=== PATIENT | female | born 1950 | race African-American/Black ===

== ENCOUNTER 2017-03-17 10:01 | Emergency (ER) | payer OTHER ==
[~2017-03-17] VITALS: Ht 165.1 cm; Wt 86.2 kg
[~2017-03-17 10:01] MED LIST: ASPIRIN325 PO; BACTRIM DS TAB1 EACH PO; CIPROFLOXACIN500 M1 PO; COLLAGEN PO; COZAAR 25 MG TA25 M1 PO; FLONASE 0.05%50 MCG NASAL; GYNE-LOTRIMIN21 GM VG; HUMALOG100 UNIT/2 SQ; IBUPROFEN 400400 M2 PO; JANUVIA50 MG; LANTUS100 UNIT/M SQ; LOSARTAN-HCTZ1 EAC3 PO; MACROBID 100 M100 M1 PO; NORCO 5-325 TA1 EACH PO; NOVOLOG100 UNIT/1 SQ; OMEPRAZOLE20 MG PO; PRINIVIL20 M1; PYRIDIUM100 M1 PO; SIMVASTATIN40 MG PO; ULTRAM 50MG TAB50 MG PO
[2017-03-17] MEDS ORDERED: VITAMIN D1000 UNI1 PO (10:20)
[2017-03-17 10:56] LABS: URINE BILIRUBIN NEGATIVE (Negative); URINE BLOOD 1+ (Negative); URINE COLOR YELLOW; URINE GLUCOSE-RANDOM* NEGATIVE (Negative); URINE KETONES NEGATIVE (Negative); URINE LEUKOCYTES-REFLEX 3+ (Negative); URINE PROTEIN (DIPSTICK) NEGATIVE (Negative); URINE SPECIFIC GRAVITY 1.015 (1.003-1.035); URINE UROBILINOGEN 0.2 E.U./dl (0.2-1.0)
[2017-03-17 11:05] LABS: CASTS None Seen /LPF (None Seen); CRYSTALS None Seen /LPF (None Seen); SQUAMOUS 0-3 Few /LPF (0-3); URINE RBC 0-2 Rare /HPF (0-2); URINE WBC-REFLEX >25 Many /HPF (0-5)
[2017-03-17] MEDS ORDERED: MACROBID 100 M100 M1 PO (11:07)
[2017-03-17] MEDS ORDERED: PHENAZOPYRIDIN200 M2 PO (11:07)
== END 2017-03-17 11:18 | disposition home or self-care (01) ==
LOC: ER 10:01
PROVIDERS: Physician Assistant
DX: N39.0 Urinary tract infection, site not specified (principal); I10 Essential (primary) hypertension; K21.9 Gastro-esophageal reflux disease without esophagitis; E11.9 Type 2 diabetes mellitus without complications; Z79.4 Long term (current) use of insulin; E78.5 Hyperlipidemia, unspecified; I25.2 Old myocardial infarction; F10.99 Alcohol use, unspecified with unspecified alcohol-induced disorder

== ENCOUNTER → 2017-03-26 | Outpatient (CLI) | payer OTHER ==
[~2017-03-26] MED LIST changes: +PHENAZOPYRIDIN200 M2 PO; +VITAMIN D1000 UNI1 PO
== END ==
LOC: RAD 08:45
DX: Z12.31 Encounter for screening mammogram for malignant neoplasm of breast (principal)

== ENCOUNTER 2017-05-07 17:46 | Emergency (ER) | payer OTHER ==
[~2017-05-07] VITALS: Ht 165.1 cm; Wt 86.2 kg
[2017-05-07 21:04] LABS: URINE BILIRUBIN NEGATIVE (Negative); URINE BLOOD 1+ (Negative); URINE COLOR YELLOW; URINE GLUCOSE-RANDOM* NEGATIVE (Negative); URINE KETONES NEGATIVE (Negative); URINE LEUKOCYTES-REFLEX 3+ (Negative); URINE PROTEIN (DIPSTICK) NEGATIVE (Negative); URINE UROBILINOGEN 0.2 E.U./dl (0.2-1.0)
[2017-05-07] MEDS ORDERED: KEFLEX500 MG PO (21:06)
[2017-05-07 21:08] LABS: SQUAMOUS 0-3 Few /LPF (0-3); URINE RBC 3-10 Few /HPF (0-2); URINE WBC-REFLEX >25 Many /HPF (0-5)
[2017-05-07 21:09] LABS: CASTS None Seen /LPF (None Seen); CRYSTALS None Seen /LPF (None Seen)
[2017-05-07] MEDS ORDERED: MACROBID 100 M100 M1 PO (21:10)
== END 2017-05-07 21:14 | disposition home or self-care (01) ==
LOC: ER 17:46
PROVIDERS: Emergency Medicine
DX: N39.0 Urinary tract infection, site not specified (principal); I10 Essential (primary) hypertension; E11.9 Type 2 diabetes mellitus without complications; K21.9 Gastro-esophageal reflux disease without esophagitis; E78.00 Pure hypercholesterolemia, unspecified; I25.2 Old myocardial infarction; F10.99 Alcohol use, unspecified with unspecified alcohol-induced disorder; Z79.4 Long term (current) use of insulin

== ENCOUNTER 2018-01-04 14:52 | Emergency (ER) | payer OTHER ==
[~2018-01-04] VITALS: Ht 165.1 cm; Wt 81.7 kg
[~2018-01-04 14:52] MED LIST changes: +HYDROCODONE-AP1 EAC6 PO; +IBUPROFEN 600600 M1 PO; +KEFLEX500 MG PO; +VICTOZA0.6 MG/0.1 SUBQ
[2018-01-04 16:47] LABS: URINE BILIRUBIN NEGATIVE (Negative); URINE BLOOD 1+ (Negative); URINE CLARITY CLEAR; URINE COLOR YELLOW; URINE GLUCOSE-RANDOM* NEGATIVE (Negative); URINE KETONES NEGATIVE (Negative); URINE LEUKOCYTES 2+ (Negative); URINE NITRITE NEGATIVE (Negative); URINE PROTEIN (DIPSTICK) 1+ (Negative); URINE UROBILINOGEN 0.2 E.U./dl (0.2-1.0)
[2018-01-04 16:49] LABS: BACTERIA >30 Many /HPF (None Seen); SQUAMOUS >10 Many /LPF (0-3); URINE RBC 0-2 Rare /HPF (0-2); URINE WBC >25 Many /HPF (0-5)
[2018-01-04 16:49] LABS: HEMATOCRIT 35.7 % (37.0-47.0); MCH 27.2 pg (26.0-34.0); MCHC 33.6 g/dL (28.0-37.0); MCV 80.9 fL (80.0-100.0); PLATELET COUNT 260 thou/uL (150-400); RBC 4.41 mil/uL (4.20-5.00); RDW 14.7 % (10.5-14.5); WBC 7.5 thou/uL (4.0-11.0)
[2018-01-04 16:50] LABS: CRYSTALS None Seen /LPF (None Seen)
[2018-01-04] MEDS ORDERED: KEFLEX500 M1 PO (16:52)
[2018-01-04] MEDS ORDERED: NAPROSYN500 MG PO (16:52)
[2018-01-04 16:56] LABS: CALCIUM 9.3 mg/dL (8.5-10.1); CREATININE 1.8 mg/dL (0.6-1.0); POTASSIUM 3.7 mmol/L (3.5-5.1)
[2018-01-04 17:10] VITALS: BP 141/78
[2018-01-04 17:13] LABS: ABSOLUTE NEUTROPHILS 4.8 thou/uL (1.4-8.2); PLATELET ESTIMATE NORMAL
[2018-03-17] MEDS ORDERED: ASPIRIN325 PO (08:38)
[2018-03-17] MEDS ORDERED: NORCO 5-325 TA1 EACH PO (10:09)
[2018-03-17] MEDS ORDERED: SENNA-DOCUSATE1 EACH PO (10:09)
[2018-03-17] MEDS ORDERED: INDOMETHACIN 2525 MG PO (10:09)
== END 2018-01-04 17:16 | disposition home or self-care (01) ==
LOC: ER 14:52
PROVIDERS: Nurse Practitioner Family
DX: J09.X2 Influenza due to identified novel influenza A virus with other respiratory manifestations (principal); E86.0 Dehydration; N39.0 Urinary tract infection, site not specified; N17.9 Acute kidney failure, unspecified; I10 Essential (primary) hypertension; E11.9 Type 2 diabetes mellitus without complications; K21.9 Gastro-esophageal reflux disease without esophagitis; E78.00 Pure hypercholesterolemia, unspecified; Z87.891 Personal history of nicotine dependence; Z79.4 Long term (current) use of insulin

== ENCOUNTER 2018-06-29 09:20 | Emergency (ER) | payer OTHER ==
[~2018-06-29] VITALS: Ht 165.1 cm; Wt 86.2 kg
[~2018-06-29 09:20] MED LIST changes: +INDOMETHACIN 2525 MG PO; +KEFLEX500 M1 PO; +NAPROSYN500 MG PO; +SENNA-DOCUSATE1 EACH PO
[2018-06-29 10:07] LABS: HEMATOCRIT 31.5 % (37.0-47.0); HEMOGLOBIN 10.7 gm/dL (12.0-15.0); MCHC 33.9 g/dL (28.0-37.0); MCV 79.5 fL (80.0-100.0); PLATELET COUNT 228 thou/uL (150-400); RBC 3.97 mil/uL (4.20-5.00); RDW 14.9 % (10.5-14.5); WBC 7.7 thou/uL (4.0-11.0)
[2018-06-29 10:13] LABS: CALCIUM 9.1 mg/dL (8.5-10.1); CREATININE 2.6 mg/dL (0.6-1.0)
[2018-06-29 10:29] LABS: URINE BILIRUBIN NEGATIVE (Negative); URINE BLOOD 2+ (Negative); URINE CLARITY CLOUDY; URINE COLOR YELLOW; URINE GLUCOSE-RANDOM* NEGATIVE (Negative); URINE KETONES NEGATIVE (Negative); URINE NITRITE-REFLEX NEGATIVE (Negative); URINE PROTEIN (DIPSTICK) 1+ (Negative); URINE SPECIFIC GRAVITY 1.015 (1.005-1.035); URINE UROBILINOGEN 0.2 E.U./dl (0.2-1.0)
[2018-06-29 10:30] LABS: URINE LEUKOCYTES-REFLEX 3+ (Negative)
[2018-06-29 10:50] LABS: SQUAMOUS 0-3 Few /LPF (0-3)
[2018-06-29 10:51] LABS: BACTERIA-REFLEX >30 Many /HPF (None Seen); CASTS None Seen /LPF (None Seen); CRYSTALS None Seen /LPF (None Seen); URINE RBC 0-2 Rare /HPF (0-2); URINE WBC-REFLEX >25 Many /HPF (0-5)
[2018-06-29 11:26] LABS: ABSOLUTE NEUTROPHILS 5.2 thou/uL (1.4-8.2); ANISOCYTOSIS 1+
[2018-06-29 12:23] LABS: CALCIUM 8.7 mg/dL (8.5-10.1); CREATININE 2.5 mg/dL (0.6-1.0); POTASSIUM 4.1 mmol/L (3.5-5.1)
[2018-06-29] MEDS ORDERED: KEFLEX500 M1 PO (12:41)
== END 2018-06-29 13:21 | disposition home or self-care (01) ==
LOC: ER 09:20
PROVIDERS: Student in an Organized Health Care Education/Training Program
DX: N39.0 Urinary tract infection, site not specified (principal); Z87.891 Personal history of nicotine dependence; I10 Essential (primary) hypertension; E11.9 Type 2 diabetes mellitus without complications; K21.9 Gastro-esophageal reflux disease without esophagitis; E78.00 Pure hypercholesterolemia, unspecified; E78.5 Hyperlipidemia, unspecified; Z79.4 Long term (current) use of insulin

== ENCOUNTER 2018-08-10 11:39 | Emergency (ER) | payer OTHER ==
[~2018-08-10] VITALS: Ht 165.1 cm; Wt 86.2 kg
[2018-08-10] MEDS ORDERED: PATANOL5 ML OPHTHALMIC (12:21)
[2018-08-10] MEDS ORDERED: XALATAN2.5 ML OPHTHALMIC (12:28)
[2018-08-10] MEDS ORDERED: SIMBRINZA 1%-0.28 ML OPHTHALMIC (12:29)
== END 2018-08-10 13:05 | disposition home or self-care (01) ==
LOC: ER 11:39
DX: H10.13 Acute atopic conjunctivitis, bilateral (principal); I10 Essential (primary) hypertension; E11.9 Type 2 diabetes mellitus without complications; K21.9 Gastro-esophageal reflux disease without esophagitis; E78.00 Pure hypercholesterolemia, unspecified; Z79.4 Long term (current) use of insulin

== ENCOUNTER 2018-08-25 08:51 | Emergency (ER) | payer OTHER ==
[~2018-08-25] VITALS: Ht 165.1 cm; Wt 81.7 kg
[~2018-08-25 08:51] MED LIST changes: +PATANOL5 ML OPHTHALMIC; +SIMBRINZA 1%-0.28 ML OPHTHALMIC; +XALATAN2.5 ML OPHTHALMIC
[2018-08-25] MEDS ORDERED: VITAMIN C500 MG PO (09:10)
[2018-08-25 09:11] LABS: URINE BILIRUBIN NEGATIVE (Negative); URINE BLOOD 1+ (Negative); URINE CLARITY SL CLOUDY; URINE COLOR YELLOW; URINE GLUCOSE-RANDOM* 2+ (Negative); URINE KETONES NEGATIVE (Negative); URINE LEUKOCYTES-REFLEX 2+ (Negative); URINE NITRITE-REFLEX POSITIVE (Negative); URINE PROTEIN (DIPSTICK) TRACE (Negative); URINE SPECIFIC GRAVITY 1.015 (1.005-1.035); URINE UROBILINOGEN 0.2 E.U./dl (0.2-1.0)
[2018-08-25 09:21] LABS: BACTERIA-REFLEX >30 Many /HPF (None Seen); CASTS None Seen /LPF (None Seen); CRYSTALS None Seen /LPF (None Seen); SQUAMOUS 0-3 Few /LPF (0-3); URINE RBC 0-2 Rare /HPF (0-2); URINE WBC-REFLEX >25 Many /HPF (0-5)
[2018-08-25] MEDS ORDERED: MOBIC15 MG PO (09:37)
[2018-08-25] MEDS ORDERED: HUMALOG100 UNIT/2 SQ (09:37)
[2018-08-25] MEDS ORDERED: KEFLEX500 M1 PO (09:37)
== END 2018-08-25 10:01 | disposition home or self-care (01) ==
LOC: ER 08:51
PROVIDERS: Emergency Medicine
DX: N39.0 Urinary tract infection, site not specified (principal); I10 Essential (primary) hypertension; K21.9 Gastro-esophageal reflux disease without esophagitis; I25.2 Old myocardial infarction; E78.00 Pure hypercholesterolemia, unspecified; E11.9 Type 2 diabetes mellitus without complications; Z79.4 Long term (current) use of insulin; Z86.73 Personal history of transient ischemic attack (TIA), and cerebral infarction without residual deficits; Z87.891 Personal history of nicotine dependence

== ENCOUNTER 2018-12-17 15:25 | Emergency (ER) | payer OTHER ==
[~2018-12-17] VITALS: Ht 165.1 cm; Wt 90.7 kg
[~2018-12-17 15:25] MED LIST changes: +MOBIC15 MG PO; +VITAMIN C500 MG PO
[2018-12-17 16:24] LABS: ABSOLUTE NEUTROPHILS 7.5 thou/uL (1.4-8.2); BASOPHILS 1.4 % (0.0-2.0); EOSINOPHILS 3.1 % (0.0-3.0); HEMATOCRIT 32.3 % (37.0-47.0); HEMOGLOBIN 11.1 gm/dL (12.0-15.0); LYMPHOCYTES 20.3 % (24.0-44.0); MCH 27.4 pg (26.0-34.0); MCHC 34.4 g/dL (28.0-37.0); MCV 79.5 fL (80.0-100.0); MONOCYTES 5.7 % (1.0-8.0); PLATELET COUNT 259 thou/uL (150-400); POLYS 69.5 % (36.0-66.0); RBC 4.06 mil/uL (4.20-5.00); RDW 14.8 % (10.5-14.5); WBC 10.8 thou/uL (4.0-11.0)
[2018-12-17 16:31] LABS: CALCIUM 8.9 mg/dL (8.5-10.1); CREATININE 1.9 mg/dL (0.6-1.0); POTASSIUM 3.6 mmol/L (3.5-5.1)
[2018-12-17 16:37] LABS: ALBUMIN 3.3 g/dL (3.4-5.0); TOTAL BILIRUBIN 0.4 mg/dL (<0.1-1.0); TOTAL PROTEIN 7.8 g/dL (6.4-8.2)
[2018-12-17] MEDS ORDERED: NORFLEX100 MG PO (17:19)
[2018-12-17] MEDS ORDERED: ULTRAM 50MG TAB50 MG PO (17:19)
[2018-12-17 17:38] VITALS: BP 130/64
[2018-12-17] MEDS ORDERED: PATANOL5 ML OPHTHALMIC (17:43)
== END 2018-12-17 17:38 | disposition home or self-care (01) ==
LOC: ER 15:25
PROVIDERS: Physician Assistant
DX: S39.012A Strain of muscle, fascia and tendon of lower back, initial encounter (principal); M54.2 Cervicalgia; G89.29 Other chronic pain; M79.662 Pain in left lower leg; I10 Essential (primary) hypertension; E11.9 Type 2 diabetes mellitus without complications; K21.9 Gastro-esophageal reflux disease without esophagitis; E78.00 Pure hypercholesterolemia, unspecified; I25.2 Old myocardial infarction; Z87.891 Personal history of nicotine dependence; X58.XXXA Exposure to other specified factors, initial encounter; Y93.89 Activity, other specified; Y92.89 Other specified places as the place of occurrence of the external cause; Y99.8 Other external cause status

== ENCOUNTER 2018-12-23 06:16 | Emergency (ER) | payer OTHER ==
[~2018-12-23] VITALS: Ht 165.1 cm; Wt 81.7 kg
[~2018-12-23 06:16] MED LIST changes: +NORFLEX100 MG PO
[2018-12-23 07:01] LABS: BASOPHILS 1.3 % (0.0-2.0); EOSINOPHILS 3.2 % (0.0-3.0); HEMATOCRIT 33.2 % (37.0-47.0); HEMOGLOBIN 11.2 gm/dL (12.0-15.0); LYMPHOCYTES 24.9 % (24.0-44.0); MCH 26.7 pg (26.0-34.0); MCHC 33.7 g/dL (28.0-37.0); MCV 79.2 fL (80.0-100.0); MONOCYTES 7.4 % (1.0-8.0); PLATELET COUNT 300 thou/uL (150-400); POLYS 63.2 % (36.0-66.0); RDW 14.2 % (10.5-14.5); WBC 9.6 thou/uL (4.0-11.0)
[2018-12-23 07:08] LABS: CALCIUM 9.8 mg/dL (8.5-10.1); CREATININE 2.1 mg/dL (0.6-1.0); POTASSIUM 4.4 mmol/L (3.5-5.1)
[2018-12-23] MEDS ORDERED: NORCO 5-325 TA1 EACH PO (08:16)
[2018-12-23] MEDS ORDERED: SENNA-DOCUSATE1 EAC1 PO (08:16)
[2018-12-23 08:48] VITALS: BP 147/68
== END 2018-12-23 09:06 | disposition home or self-care (01) ==
LOC: ER 06:16
PROVIDERS: Emergency Medicine
DX: M10.071 Idiopathic gout, right ankle and foot (principal); I10 Essential (primary) hypertension; E11.9 Type 2 diabetes mellitus without complications; K21.9 Gastro-esophageal reflux disease without esophagitis; E78.00 Pure hypercholesterolemia, unspecified; I25.2 Old myocardial infarction; Z87.891 Personal history of nicotine dependence

== ENCOUNTER 2019-02-14 15:19 | Emergency (ER) | payer OTHER ==
[~2019-02-14] VITALS: Ht 165.1 cm; Wt 88.5 kg
[~2019-02-14 15:19] MED LIST changes: +SENNA-DOCUSATE1 EAC1 PO
[2019-02-14 16:38] LABS: URINE BILIRUBIN NEGATIVE (Negative); URINE BLOOD 1+ (Negative); URINE CLARITY SL CLOUDY; URINE COLOR YELLOW; URINE GLUCOSE-RANDOM* 1+ (Negative); URINE KETONES NEGATIVE (Negative); URINE PROTEIN (DIPSTICK) 1+ (Negative); URINE SPECIFIC GRAVITY 1.015 (1.005-1.035); URINE UROBILINOGEN 0.2 E.U./dl (0.2-1.0)
[2019-02-14 16:39] LABS: URINE LEUKOCYTES-REFLEX 3+ (Negative); URINE NITRITE-REFLEX POSITIVE (Negative)
[2019-02-14 16:49] LABS: HEMATOCRIT 34.4 % (37.0-47.0); HEMOGLOBIN 11.4 gm/dL (12.0-15.0); MCH 27.2 pg (26.0-34.0); MCHC 33.2 g/dL (28.0-37.0); RBC 4.19 mil/uL (4.20-5.00); RDW 14.9 % (10.5-14.5); WBC 9.6 thou/uL (4.0-11.0)
[2019-02-14 16:50] LABS: CASTS None Seen /LPF (None Seen); CRYSTALS None Seen /LPF (None Seen); SQUAMOUS 4-10 Moderate /LPF (0-3); URINE WBC-REFLEX >25 Many /HPF (0-5)
[2019-02-14 16:51] LABS: BACTERIA-REFLEX >30 Many /HPF (None Seen); URINE RBC 0-2 Rare /HPF (0-2)
[2019-02-14 16:56] LABS: CALCIUM 9.2 mg/dL (8.5-10.1); CREATININE 2.1 mg/dL (0.6-1.0); POTASSIUM 4.1 mmol/L (3.5-5.1)
[2019-02-14 17:02] LABS: ALBUMIN 3.4 g/dL (3.4-5.0); TOTAL BILIRUBIN 0.3 mg/dL (<0.1-1.0); TOTAL PROTEIN 7.6 g/dL (6.4-8.2)
[2019-02-14] MEDS ORDERED: COZAAR 25 MG TA25 M2 PO (17:40)
[2019-02-14] MEDS ORDERED: OLOPATADINE HCL5 ML OPHTHALMIC (17:40)
[2019-02-14] MEDS ORDERED: KEFLEX500 M1 PO (17:40)
[2019-02-14] MEDS ORDERED: NORCO 10-325 T1 EACH PO (17:40)
[2019-02-14 17:54] VITALS: BP 147/81
== END 2019-02-14 17:55 | disposition home or self-care (01) ==
LOC: ER 15:19
PROVIDERS: Physician Assistant
DX: M10.071 Idiopathic gout, right ankle and foot (principal); N39.0 Urinary tract infection, site not specified; Z76.0 Encounter for issue of repeat prescription; L53.9 Erythematous condition, unspecified; I10 Essential (primary) hypertension; E11.9 Type 2 diabetes mellitus without complications; K21.9 Gastro-esophageal reflux disease without esophagitis; E78.00 Pure hypercholesterolemia, unspecified; Z87.891 Personal history of nicotine dependence; Z79.4 Long term (current) use of insulin

== ENCOUNTER 2019-06-21 13:52 | Emergency (ER) | payer OTHER ==
[~2019-06-21] VITALS: Ht 165.1 cm; Wt 63.5 kg
[~2019-06-21 13:52] MED LIST changes: +COZAAR 25 MG TA25 M2 PO; +NORCO 10-325 T1 EACH PO; +OLOPATADINE HCL5 ML OPHTHALMIC
[2019-06-21] MEDS ORDERED: COLCHICINE0.6 MG PO (16:01)
[2019-06-21] MEDS ORDERED: NORCO 5-325 TA1 EAC1 PO (16:05)
[2019-06-21 16:27] VITALS: BP 118/64
== END 2019-06-21 16:28 | disposition home or self-care (01) ==
LOC: ER 13:52
DX: M19.041 Primary osteoarthritis, right hand (principal); I10 Essential (primary) hypertension; E11.9 Type 2 diabetes mellitus without complications; K21.9 Gastro-esophageal reflux disease without esophagitis; E78.00 Pure hypercholesterolemia, unspecified; M10.9 Gout, unspecified; Z79.4 Long term (current) use of insulin; Z86.73 Personal history of transient ischemic attack (TIA), and cerebral infarction without residual deficits; Z87.891 Personal history of nicotine dependence

== ENCOUNTER 2019-08-31 07:15 | Emergency (ER) | payer OTHER ==
[~2019-08-31] VITALS: Ht 167.6 cm; Wt 88.5 kg
[~2019-08-31 07:15] MED LIST changes: +COLCHICINE0.6 MG PO; +NORCO 5-325 TA1 EAC1 PO
[2019-08-31 07:17] VITALS: BP 150/62
[2019-08-31] MEDS ORDERED: HUMALOG100 UNIT/1 SUBQ (07:26)
[2019-08-31] MEDS ORDERED: LIPITOR10 MG PO (07:27)
== END 2019-08-31 08:16 | disposition home or self-care (01) ==
LOC: ER 07:15
DX: S93.491A Sprain of other ligament of right ankle, initial encounter (principal); I10 Essential (primary) hypertension; E11.9 Type 2 diabetes mellitus without complications; E78.00 Pure hypercholesterolemia, unspecified; I25.2 Old myocardial infarction; M10.9 Gout, unspecified; K21.9 Gastro-esophageal reflux disease without esophagitis; Z86.73 Personal history of transient ischemic attack (TIA), and cerebral infarction without residual deficits; Z79.4 Long term (current) use of insulin; Z87.891 Personal history of nicotine dependence; X50.0XXA Overexertion from strenuous movement or load, initial encounter; Y92.89 Other specified places as the place of occurrence of the external cause; Y93.89 Activity, other specified; Y99.8 Other external cause status

== ENCOUNTER 2019-10-11 15:06 | Emergency (ER) | payer OTHER ==
[~2019-10-11] VITALS: Ht 165.1 cm; Wt 92.1 kg
[~2019-10-11 15:06] MED LIST changes: +HUMALOG100 UNIT/1 SUBQ; +LIPITOR10 MG PO
[2019-10-11 17:04] LABS: URINE BILIRUBIN NEGATIVE (Negative); URINE BLOOD TRACE (Negative); URINE COLOR YELLOW; URINE GLUCOSE-RANDOM* NEGATIVE (Negative); URINE KETONES NEGATIVE (Negative); URINE NITRITE-REFLEX NEGATIVE (Negative); URINE PROTEIN (DIPSTICK) 1+ (Negative); URINE UROBILINOGEN 0.2 E.U./dl (0.2-1.0)
[2019-10-11 17:05] LABS: URINE LEUKOCYTES-REFLEX 3+ (Negative)
[2019-10-11 17:06] LABS: URINE CLARITY HAZY
[2019-10-11 17:09] LABS: BACTERIA-REFLEX >30 Many /HPF (None Seen); CASTS None Seen /LPF (None Seen); SQUAMOUS 0-3 Few /LPF (0-3); URINE RBC 3-10 Few /HPF (0-2); URINE WBC-REFLEX >25 Many /HPF (0-5)
[2019-10-11 17:10] LABS: CRYSTALS None Seen /LPF (None Seen)
[2019-10-11] MEDS ORDERED: KEFLEX500 M1 PO (17:27)
[2019-10-11 17:30] VITALS: BP 180/89
--- NOTE | 2019-10-11 21:56 | EKG ---
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 : 1950 Requested By: Zina Millan Order Number: [id number] MD: Paul Tiwari Measurements Intervals [place] Rate: 97 P: 116 WI: 130 QRS: 186 QRSD: 95 T: 120 QT: 365 QTc: 464 Interpretive Statements Right and left arm electrode reversal, interpretation assumes no reversal Sinus rhythm Poor R wave progression No previous ECG available for comparison recommend repeat tracing with correct lead placement Electronically Signed On 10-11-2019 21:56:00 [employer]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
== END 2019-10-11 17:30 | disposition home or self-care (01) ==
LOC: ER 15:06
PROVIDERS: Emergency Medicine
DX: N39.0 Urinary tract infection, site not specified (principal); B34.9 Viral infection, unspecified; I10 Essential (primary) hypertension; E11.9 Type 2 diabetes mellitus without complications; E78.00 Pure hypercholesterolemia, unspecified; K21.9 Gastro-esophageal reflux disease without esophagitis; M10.9 Gout, unspecified; Z86.73 Personal history of transient ischemic attack (TIA), and cerebral infarction without residual deficits; Z96.652 Presence of left artificial knee joint; Z79.4 Long term (current) use of insulin; Z87.891 Personal history of nicotine dependence

== ENCOUNTER 2019-10-15 15:38 | Emergency (ER) | payer OTHER ==
[~2019-10-15] VITALS: Ht 167.6 cm; Wt 92.1 kg
[2019-10-15] MEDS ORDERED: FLONASE 0.05%50 MCG NARES (17:00)
[2019-10-15 17:14] VITALS: BP 173/96
== END 2019-10-15 17:21 | disposition home or self-care (01) ==
LOC: ER 15:38
DX: B34.9 Viral infection, unspecified (principal); J06.9 Acute upper respiratory infection, unspecified; I10 Essential (primary) hypertension; E11.9 Type 2 diabetes mellitus without complications; K21.9 Gastro-esophageal reflux disease without esophagitis; E78.00 Pure hypercholesterolemia, unspecified; I25.2 Old myocardial infarction; M10.9 Gout, unspecified; Z87.891 Personal history of nicotine dependence; Z79.4 Long term (current) use of insulin; Z79.82 Long term (current) use of aspirin; Z79.899 Other long term (current) drug therapy

== ENCOUNTER 2020-01-06 10:22 | Emergency (ER) | payer OTHER ==
[~2020-01-06] VITALS: Ht 167.6 cm; Wt 89.8 kg
[~2020-01-06 10:22] MED LIST changes: +FLONASE 0.05%50 MCG NARES
[2020-01-06] MEDS ORDERED: MOBIC15 MG PO (13:42)
[2020-01-06 13:53] VITALS: BP 161/72
== END 2020-01-06 13:57 | disposition home or self-care (01) ==
LOC: ER 10:22
DX: R51 Headache (principal); I10 Essential (primary) hypertension; E11.9 Type 2 diabetes mellitus without complications; E78.00 Pure hypercholesterolemia, unspecified; K21.9 Gastro-esophageal reflux disease without esophagitis; M10.9 Gout, unspecified; Z79.4 Long term (current) use of insulin; Z87.891 Personal history of nicotine dependence

== ENCOUNTER 2020-09-12 12:40 | Emergency (ER) | payer OTHER ==
[~2020-09-12] VITALS: Ht 152.4 cm; Wt 72.6 kg
[2020-09-12 13:02] LABS: URINE BILIRUBIN NEGATIVE (Negative); URINE BLOOD TRACE (Negative); URINE CLARITY CLOUDY; URINE COLOR YELLOW; URINE GLUCOSE-RANDOM* NEGATIVE (Negative); URINE KETONES NEGATIVE (Negative); URINE LEUKOCYTES-REFLEX 3+ (Negative); URINE NITRITE-REFLEX POSITIVE (Negative); URINE PROTEIN (DIPSTICK) 1+ (Negative); URINE UROBILINOGEN 0.2 E.U./dl (0.2-1.0)
[2020-09-12] MEDS ORDERED: ULTRAM 50MG TAB50 MG PO (13:05)
[2020-09-12] MEDS ORDERED: KEFLEX500 M1 PO (13:05)
[2020-09-12] MEDS ORDERED: PHENAZOPYRIDIN200 M2 PO (13:05)
[2020-09-12 13:08] LABS: SQUAMOUS 0-3 Few /LPF (0-3); URINE WBC-REFLEX >25 Many /HPF (0-5)
[2020-09-12 13:09] LABS: CASTS None Seen /LPF (None Seen); CRYSTALS None Seen /LPF (None Seen); URINE RBC None Seen /HPF (0-2)
[2020-09-12 13:40] VITALS: BP 142/72
== END 2020-09-12 13:41 | disposition home or self-care (01) ==
LOC: ER 12:40
PROVIDERS: Physician Assistant
DX: N39.0 Urinary tract infection, site not specified (principal); R51.9 Headache, unspecified; I10 Essential (primary) hypertension; E11.9 Type 2 diabetes mellitus without complications; K21.9 Gastro-esophageal reflux disease without esophagitis; I25.2 Old myocardial infarction; E78.5 Hyperlipidemia, unspecified; Z79.4 Long term (current) use of insulin; Z79.82 Long term (current) use of aspirin; Z79.899 Other long term (current) drug therapy; Z87.891 Personal history of nicotine dependence

== ENCOUNTER 2020-12-07 08:40 | Emergency (ER) | payer OTHER ==
[~2020-12-07] VITALS: Ht 167.6 cm; Wt 90.7 kg
[2020-12-07] MEDS ORDERED: LOSARTAN POTAS100 MG PO (09:29)
[2020-12-07] MEDS ORDERED: ALLOPURINOL 10100 M1 PO (09:31)
[2020-12-07 10:01] LABS: ABSOLUTE NEUTROPHILS 6.1 thou/uL (1.4-8.2); BASOPHILS 0.4 % (0.0-2.0); EOSINOPHILS 3.1 % (0.0-3.0); HEMATOCRIT 31.1 % (37.0-47.0); LYMPHOCYTES 23.2 % (24.0-44.0); MCH 27.2 pg (26.0-34.0); MCHC 32.2 g/dL (28.0-37.0); MCV 84.4 fL (80.0-100.0); PLATELET COUNT 281 thou/uL (150-400); POLYS 65.3 % (36.0-66.0); RBC 3.69 mil/uL (4.20-5.00); RDW 14.3 % (10.5-14.5); WBC 9.3 thou/uL (4.0-11.0)
[2020-12-07 10:04] LABS: ANION GAP 9 mmol/L (7-16); BUN 50 mg/dL (7-18); CALCIUM 8.8 mg/dL (8.5-10.1); CHLORIDE 105 mmol/L (98-107); CO2 23 mmol/L (21-32); CREATININE 2.6 mg/dL (0.6-1.0); GLUCOSE 175 mg/dL (74-106); POTASSIUM 4.3 mmol/L (3.5-5.1); SODIUM 137 mmol/L (136-145)
[2020-12-07 10:14] LABS: ALBUMIN 3.5 g/dL (3.4-5.0); DIRECT BILIRUBIN < 0.1 mg/dL (<0.1-0.2); SGOT 13 U/L (15-37); SGPT 25 U/L (14-59); TOTAL BILIRUBIN 0.3 mg/dL (0.2-1.0); TOTAL PROTEIN 7.4 g/dL (6.4-8.2); TROPONIN-I <0.06 ng/mL (<0.06)
[2020-12-07] MEDS ORDERED: CYCLOBENZAPRINE5 MG PO (12:51)
[2020-12-07] MEDS ORDERED: MOBIC15 MG PO (12:51)
[2020-12-07 13:07] VITALS: BP 168/54
--- NOTE | 2020-12-07 13:53 | EKG ---
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
== END 2020-12-07 13:00 | disposition home or self-care (01) ==
LOC: ER 08:40
PROVIDERS: Emergency Medicine
DX: S16.1XXA Strain of muscle, fascia and tendon at neck level, initial encounter (principal); R07.89 Other chest pain; I25.2 Old myocardial infarction; E11.9 Type 2 diabetes mellitus without complications; I10 Essential (primary) hypertension; K21.9 Gastro-esophageal reflux disease without esophagitis; Z96.652 Presence of left artificial knee joint; E78.00 Pure hypercholesterolemia, unspecified; Z86.73 Personal history of transient ischemic attack (TIA), and cerebral infarction without residual deficits; Z79.82 Long term (current) use of aspirin; Z79.899 Other long term (current) drug therapy; Z87.891 Personal history of nicotine dependence; X58.XXXA Exposure to other specified factors, initial encounter; Y93.89 Activity, other specified; Y92.89 Other specified places as the place of occurrence of the external cause; Y99.8 Other external cause status

== ENCOUNTER 2021-05-17 15:44 | Emergency (ER) | payer OTHER ==
[~2021-05-17] VITALS: Ht 167.6 cm; Wt 93.9 kg
[~2021-05-17 15:44] MED LIST changes: +ALLOPURINOL 10100 M1 PO; +CYCLOBENZAPRINE5 MG PO; +LOSARTAN POTAS100 MG PO
[2021-05-17] MEDS ORDERED: TESSALON PERLE100 MG PO (17:53)
[2021-05-17 18:17] VITALS: BP 148/76
== END 2021-05-17 18:18 | disposition home or self-care (01) ==
LOC: ER 15:44
DX: J06.9 Acute upper respiratory infection, unspecified (principal); Z20.822 Contact with and (suspected) exposure to COVID-19; I10 Essential (primary) hypertension; E11.9 Type 2 diabetes mellitus without complications; K21.9 Gastro-esophageal reflux disease without esophagitis; E78.00 Pure hypercholesterolemia, unspecified; I25.2 Old myocardial infarction; Z86.73 Personal history of transient ischemic attack (TIA), and cerebral infarction without residual deficits; Z96.652 Presence of left artificial knee joint; Z79.899 Other long term (current) drug therapy; Z79.4 Long term (current) use of insulin; Z79.82 Long term (current) use of aspirin; Z87.891 Personal history of nicotine dependence

== ENCOUNTER 2021-11-02 16:24 | Emergency (ER) | payer OTHER ==
[~2021-11-02] VITALS: Ht 167.6 cm; Wt 90.7 kg
[~2021-11-02 16:24] MED LIST changes: +TESSALON PERLE100 MG PO
[2021-11-02 16:37] VITALS: BP 155/79
== END 2021-11-02 18:14 | disposition home or self-care (01) ==
LOC: ER 16:24
DX: Z20.822 Contact with and (suspected) exposure to COVID-19 (principal); I10 Essential (primary) hypertension; E11.9 Type 2 diabetes mellitus without complications; K21.9 Gastro-esophageal reflux disease without esophagitis; E78.00 Pure hypercholesterolemia, unspecified; I25.2 Old myocardial infarction; M10.9 Gout, unspecified; Z79.82 Long term (current) use of aspirin; Z79.4 Long term (current) use of insulin; Z79.899 Other long term (current) drug therapy; Z87.891 Personal history of nicotine dependence